=== PATIENT | male | born 1955 | race Caucasian/White ===

== ENCOUNTER 2020-01-02 12:46 | Outpatient (RCR) | payer MEDICARE, OTHER, SELFPAY ==
[2020-01-02 13:00] VITALS: BP 153/111; PULSE 87; RESP 16; BMI 33.9
--- NOTE | 2020-01-02 13:14 | WC ---
PT WILL BRING IN MED LIST @ NEXT VISIT.
[2020-01-02 13:40] VITALS: BP 144/66; PULSE 92; RESP 18
--- NOTE | 2020-01-02 15:53 | HP.PCM_ITS ---
(1) Laceration of left forearm Status: Acute Current Visit: Yes Code(s): S51.812A - Laceration without foreign body of left forearm, initial encounter (2) Hyperlipemia Status: Acute Current Visit: Yes Code(s): E78.5 - Hyperlipidemia, unspecified (3) Atrial fibrillation Status: Acute Current Visit: Yes Code(s): I48.91 - Unspecified atrial fibrillation (4) GERD (gastroesophageal reflux disease) Status: Acute Current Visit: Yes Code(s): K21.9 - Gastro-esophageal reflux disease without esophagitis (5) HTN (hypertension) Status: Chronic Current Visit: Yes Code(s): I10 - Essential (primary) hypertension (6) Delayed wound healing Status: Acute Current Visit: Yes Code(s): T14.8XXD - Other injury of unspecified body region, subsequent encounter History of Present Illness Date of Service: 01/02/20 Chief Complaint: Nonhealing wound/laceration to right arm x2 weeks History of Wound: This is a 64-year-old white male with a past medical history as listed above who presents to the wound healing center today with a complaint of a laceration to right forearm x2 weeks. This occurred after a mechanical fall where he hit the ground and cut a area on his forearm against an object as he was falling. He has been utilizing triple antibiotic ointment. He states that the wound has delayed healing and has not improved much. He denies any other treatments and he denies any systemic or localized signs of infection. All other systems reviewed and negative with exception of those listed above. Past Medical History Past Medical History: Chronic Problems HTN (hypertension) (Chronic) Allergies/Adverse Reactions: Allergies bee pollen Allergy (Verified 01/02/20 13:12) Swelling ROBERT Inhibitors Adverse Reaction (Verified 01/02/20 13:12) Angioedema Smoking Status: Former smoker Review of Systems Constitutional: Denies: Chills, Fever, Weight Change Eyes: Denies: Pain, Vision Change HEENT: Denies: Difficulty Hearing, Difficulty Swallowing, Sinus Congestion Cardiovascular: Denies: Chest Pain, Palpitations Respiratory: Denies: Cough, Shortness of Breath Gastrointestinal: Denies: Diarrhea, Nausea, Vomiting Genitourinary: Denies: Dysuria, Hematuria Skin: Reports: Wounds - See HPI Endocrine: Denies: Heat/ Cold Intolerance, Polydipsia, Polyuria Hematologic/ Lymphatic: Denies: Easy Bruising, Easy Bleeding - Physical Exam Vital Signs Pulse Resp BP 92 18 144/66 H 01/02/20 13:40 01/02/20 13:40 01/02/20 13:40 General: Alert, Oriented x3, Cooperative, No apparent distress HEENT: Atraumatic Oral: Moist Mucosa Neck: Supple, No JVD Lungs: Clear to auscultation, Normal air movement Cardiovascular: Regular rate, Regular Rhythm, Normal S1, Normal S2 Abdomen: Soft, Non Tender Extremities: No clubbing, No cyanosis, No edema Skin: Ulcer/ Wound - See nursing documentation, wound to right posterior forearm with large amount of adherent slough, no signs of obvious infection at this time Wound Measurements and Assessment WC - Nurse 1 - General Ulcer Measurement Start: 01/02/20 12:59 Freq: Status: Active Protocol: Activity Type Activity Date Activity User E-Sign Co-Sign Detail Recorded Client Recorded Date Recorded By Document 01/02/20 13:00 [facility] [id number] 01/02/20 13:08 [facility] 01/02/20 13:00 Wound Center Nurse 1 [Ulcer Assessment] #1- R ARM POST FALL -Combined with other wound No -Current Size (cm) - Length 10.2 -Current Size (cm) - Width 5.7 -Current Size (cm) - Depth 0.1 -Total Square Cm 58.14 -Date of Last Picture (Recall this 01/02/20 field) -Photo Taken Yes -Epithelialization None Present -Tunneling No -Undermining/Tunneling No -Circular Undermining No -Exudate Amt Small -Exudate Type Serous -Wound Margin Flat & Intact -Granulation Amt Small (1-33%) -Granulation Quality [place] -Slough/Fibrin Yes -Necrosis Amt Large (67-100%) -Necrotic Tissue Type Adherent Slough -Texture (Saranya-wound Skin Appearance) Assessed, Scarring -Moisture (Saranya-wound Skin Appearance Assessed,Dry/ ) Scaly -Color (Saranya-wound Skin Appearance) Assessed, Erythema -Temperature (Saranya-wound Skin No Abnormality Appearance) (Pt Warm) -Tenderness on Palpation (Saranya-wound No Skin Appearance) -Ulcer Cleansing Rinsed/ Irrigated with Saline -Foul Odor after Cleansing No -Anesthetic Used 4% Lidocaine Solution WC - Nurse 2 - General Ulcer CM Notes Start: 01/02/20 12:59 Freq: Status: Active Protocol: Activity Type Activity Date Activity User E-Sign Co-Sign Detail Recorded Client Recorded Date Recorded By Document 01/02/20 13:24 MW [id number] 01/02/20 13:31 MW 01/02/20 13:24 Wound Center Nurse 2 [Procedure/Treatment] -Time 13:24 -Correct Patient Yes -Correct Side, Site, Position Yes -Correct Procedure Yes -Procedure Performed Yes -Type of Procedure Debridement -Clinical Debridement Subcutaneous -Tissue Removed Subcutaneous -Post Debridement (cm) - Length 13.5 -Post Debridement (cm) - Width 3.5 -Post Debridement (cm) - Depth 0.1 -Total Square (Post) (cm) 47.25 -Area of Debridement (cm) - Length 13.5 -Area of Debridement (cm) - Width 3.5 -Total Square (Area) (cm) 47.25 -Tunneling No -Undermining/Tunneling No -Circular Undermining No -Wound/Ulcer Outcome Not Healed -Ulcer Cleansing Rinsed/ Irrigated with Saline -Foul Odor after Cleansing No -Bioengineered Tissue No -Bleeding Controlled with Pressure -Offloading No -Debridement - Subq, 1st 20sq cm Yes -Debridement, SubQ, ea addt'l 20sq cm 2 or part thereof [See Physician Procedure note for Specifics] Pain Scale: 0-10 Numeric [Pain] -Is Patient Pain Free? Yes WC - Nurse 3 - General Ulcer D/C NN Start: 01/02/20 12:59 Freq: Status: Active Protocol: Activity Type Activity Date Activity User E-Sign Co-Sign Detail Recorded Client Recorded Date Recorded By Document 01/02/20 13:40 RB [id number] 01/02/20 13:42 RB 01/02/20 13:40 Wound Care Nurse 3 [Wound Dressing] #1- R ARM POST FALL -Ulcer Cleansing Rinsed/ Irrigated with Saline -Primary Dressing Applied Promogran -Primary Dressing Covered/Secured Dry Gauze,Dry with Gauze & Roll Gauze,Secured with Tape -Promogran 2 [Post Procedure Tolerated] -Treatment Response Procedure Tolerated Well Vital Signs [Pulse] -Pulse Rate (60-100) 92 -Pulse Location Monitor [Respirations] -Respiratory Rate (12-18) 18 -Respiratory rate source Observation [Blood Pressure] -Blood Pressure (90/60-120/80) 144/66 H -Blood Pressure Mean (mm Hg) 92 -Source Monitor -Position Sitting -Blood Pressure Location Left Arm Pain Scale: 0-10 Numeric [Pain] -Is Patient Pain Free? Yes WC - Visit Discharge [Visit Discharge Information] -Discharge Condition Stable -Ambulatory Status Ambulatory -Transportation Private Auto -Medication Reconcilliation completed No & provided to patient/care provider -Clinical Summary of Care Provided Yes Neurological: Neuro grossly intact Psych/Mental Status: Normal Affect, Appropriate, Alert and oriented to time, place, person, mood and affect Debridement Note Post-Debridement Measurements/Treatment WC - Nurse 2 - General Ulcer CM Notes Start: 01/02/20 12:59 Freq: Status: Active Protocol: Activity Type Activity Date Activity User E-Sign Co-Sign Detail Recorded Client Recorded Date Recorded By Document 01/02/20 13:24 MW [id number] 01/02/20 13:31 MW 01/02/20 13:24 Wound Center Nurse 2 #1- R ARM POST FALL -Time 13:24 -Correct Patient Yes -Correct Side, Site, Position Yes -Correct Procedure Yes -Procedure Performed Yes -Type of Procedure Debridement -Clinical Debridement Subcutaneous -Tissue Removed Subcutaneous -Post Debridement (cm) - Length 13.5 -Post Debridement (cm) - Width 3.5 -Post Debridement (cm) - Depth 0.1 -Total Square (Post) (cm) 47.25 -Area of Debridement (cm) - Length 13.5 -Area of Debridement (cm) - Width 3.5 -Total Square (Area) (cm) 47.25 -Tunneling No -Undermining/Tunneling No -Circular Undermining No -Wound/Ulcer Outcome Not Healed -Ulcer Cleansing Rinsed/ Irrigated with Saline -Foul Odor after Cleansing No -Bioengineered Tissue No -Bleeding Controlled with Pressure -Offloading No -Debridement - Subq, 1st 20sq cm Yes -Debridement, SubQ, ea addt'l 20sq cm 2 or part thereof Pain Scale: 0-10 Numeric Is Patient Pain Free? Yes - Nurse 3 - General Ulcer D/C NN Start: 01/02/20 12:59 Freq: Status: Active Protocol: Activity Type Activity Date Activity User E-Sign Co-Sign Detail Recorded Client Recorded Date Recorded By Document 01/02/20 13:40 RB [id number] 01/02/20 13:42 RB 01/02/20 13:40 Wound Care Nurse 3 #1- R ARM POST FALL -Ulcer Cleansing Rinsed/ Irrigated with Saline -Primary Dressing Applied Promogran -Primary Dressing Covered/Secured with Dry Gauze,Dry Gauze & Roll Gauze,Secured with Tape -Promogran 2 Treatment Response Procedure Tolerated Well Vital Signs Pulse Rate (60-100) 92 Pulse Location Monitor Respiratory Rate (12-18) 18 Respiratory rate source Observation Blood Pressure (90/60-120/80) 144/66 H Blood Pressure Mean (mm Hg) 92 Source Monitor Position Sitting Blood Pressure Location Left Arm Pain Scale: 0-10 Numeric Is Patient Pain Free? Yes WC - Visit Discharge Discharge Condition Stable Ambulatory Status Ambulatory Transportation Private Auto Medication Reconcilliation completed & No provided to patient/care provider Clinical Summary of Care Provided Yes Wound debrided: Right forearm laceration Laterality: Right Type of Debridement: Excisional debridement Anesthesia Used: 5% Lidocaine Gel Depth: Down to and including healthy tissue, in the subcutaneous layer Percentage of wound debrided: 100 Instrument Used: 5mm curette Tissue Removed: Slough and devitalized tissue Severity: Fat Layer Exposed Amount of bleeding with debridement: Mild Bleeding Controlled with: Pressure Patient tolerated procedure well Assessment/Plan Active Problems Laceration of left forearm (Acute) Hyperlipemia (Acute) Atrial fibrillation (Acute) GERD (gastroesophageal reflux disease) (Acute) HTN (hypertension) (Chronic) Delayed wound healing (Acute) Assessment: Laceration right forearm Plan: The patient was seen and examined at the wound center today and was updated on the plan of care. A subcutaneous debridement was performed today. The patient tolerated the procedure well. The patients wound care will consist of:promogran moistened apply daily and cover with adaptic and gauze. Wound cultures were held. Baseline bloodwork held. Patient educated on the importance of diet on wound healing and instructed to increase protein and vitamin C intake. Patient verbalized understanding. Patient will follow up at wound healing center in one week or sooner if needed. This note was generated with [employer] dictation software. It may contain incorrect words, spelling, and pu nctuation that were not noted in checking the note before signing. Office Visits / Consults: [id number] OV L3 Est 111xxx-113xx: [id number] Jessica subq tissue 20 sq cm/< Add On Codes: [id number] Jessica subq tissue add-on
== END 2020-01-08 23:59 ==
LOC: WC 12:46
PROVIDERS: PCP Family Medicine; Referring Provider Family Medicine; Visit Provider Nurse Practitioner Family
DX: S51.811A Laceration without foreign body of right forearm, initial encounter (principal); W19.XXXA Unspecified fall, initial encounter; E78.5 Hyperlipidemia, unspecified; I48.91 Unspecified atrial fibrillation; K21.9 Gastro-esophageal reflux disease without esophagitis; I10 Essential (primary) hypertension; Z87.891 Personal history of nicotine dependence
CPT/HCPCS: 11042; 11045; 99203; G0463

== ENCOUNTER 2020-01-09 08:04 | Outpatient (RCR) | payer MEDICARE, OTHER, SELFPAY ==
[2020-01-09 00:51] VITALS: BP 144/66; PULSE 92; RESP 18
[2020-01-09 13:08] VITALS: BP 151/103; PULSE 80; RESP 18; TEMP 36.1; BMI 33.9
--- NOTE | 2020-01-09 16:36 | PCM.WC.PN ---
(1) Laceration of right forearm Status: Acute Code(s): S51.811A - Laceration without foreign body of right forearm, initial encounter (2) Delayed wound healing Status: Acute Code(s): T14.8XXD - Other injury of unspecified body region, subsequent encounter (3) GERD (gastroesophageal reflux disease) Status: Acute Code(s): K21.9 - Gastro-esophageal reflux disease without esophagitis (4) HTN (hypertension) Status: Chronic Code(s): I10 - Essential (primary) hypertension Type of Wound Date of Service: 01/09/20 Chief Complaint: Nonhealing wound/laceration to right arm x2 weeks History of Wound: This is a 64-year-old white male with a past medical history as listed above who presents to the wound healing center today with a complaint of a laceration to right forearm x2 weeks. This occurred after a mechanical fall where he hit the ground and cut a area on his forearm against an object as he was falling. He has been utilizing triple antibiotic ointment. He states that the wound has delayed healing and has not improved much. He denies any other treatments and he denies any systemic or localized signs of infection. All other systems reviewed and negative with exception of those listed above. Progress of Wound: 01/09/2020?site is healed without any signs of infection at this time. The patient otherwise denies any fever, chills, nausea, vomiting, shortness of breath, chest pain or pressure, palpitations, orthopnea, lower extremity edema, syncope or presyncopal episodes. - Physical Exam Vital Signs Temp Pulse Resp BP 97 F L 80 18 151/103 H 01/09/20 13:08 01/09/20 13:08 01/09/20 13:08 01/09/20 13:08 General: Alert, Oriented x3, Cooperative, No apparent distress HEENT: Atraumatic Oral: Moist Mucosa Lungs: Clear to auscultation, Normal air movement Cardiovascular: Regular rate, Regular Rhythm Abdomen: Soft, Non Tender Extremities: No clubbing, No cyanosis, No edema Skin: Ulcer/ Wound - Healed, no signs of infection at this time Wound Measurements and Assessment WC - Nurse 1 - General Ulcer Measurement Start: 01/09/20 13:08 Freq: Status: Discharge Protocol: Activity Type Activity Date Activity User E-Sign Co-Sign Detail Recorded Client Recorded Date Recorded By Document 01/09/20 13:08 [facility] [id number] 01/09/20 13:12 [facility] Edit Status 01/09/20 13:34 BKKillian DAEMON Active=>Discharge [id number] 01/09/20 13:34 BKG DAEMON 01/09/20 13:08 Wound Center Nurse 1 [Ulcer Assessment] #1- R ARM POST FALL -Combined with other wound No -Current Size (cm) - Length 0.1 -Current Size (cm) - Width 0.1 -Current Size (cm) - Depth 0.1 -Total Square Cm 0.01 -Photo Taken No -Epithelialization Large 67-100% -Tunneling No -Undermining/Tunneling No -Circular Undermining No -Texture (Saranya-wound Skin Appearance) Assessed -Moisture (Saranya-wound Skin Appearance Assessed ) -Color (Saranya-wound Skin Appearance) Assessed -Temperature (Saranya-wound Skin No Abnormality Appearance) (Pt Warm) -Tenderness on Palpation (Saranya-wound No Skin Appearance) WC - Nurse 2 - General Ulcer CM Notes Start: 01/09/20 13:08 Freq: Status: Discharge Protocol: Activity Type Activity Date Activity User E-Sign Co-Sign Detail Recorded Client Recorded Date Recorded By Edit Status 01/09/20 13:34 BKKillian DAEMON Active=>Discharge [id number] 01/09/20 13:34 BKG DAEMON - Nurse 3 - General Ulcer D/C NN Start: 01/09/20 13:08 Freq: Status: Discharge Protocol: Activity Type Activity Date Activity User E-Sign Co-Sign Detail Recorded Client Recorded Date Recorded By Document 01/09/20 13:22 [facility] [id number] 01/09/20 13:22 [facility] Edit Status 01/09/20 13:34 BKG DAEMON Active=>Discharge [id number] 01/09/20 13:34 BKG DAEMON 01/09/20 13:22 Wound Care Nurse 3 [Wound Dressing] -Primary Dressing Applied NonAdherent Contact Layer -Primary Dressing Covered/Secured Dry Gauze,Other with -Other Covering coban [Post Procedure Tolerated] -Treatment Response Procedure Tolerated Well Vital Signs [Comments] -Comment no debridement. no post vitals Pain Scale: 0-10 Numeric [Pain] -Is Patient Pain Free? Yes WC - Visit Discharge [Visit Discharge Information] -Discharge Condition Stable -Ambulatory Status Ambulatory -Transportation Private Auto Neurological: Neuro grossly intact Psych/Mental Status: Normal Affect, Appropriate, Alert and oriented to time, place, person, mood and affect Debridement Note Post-Debridement Measurements/Treatment - Nurse 3 - General Ulcer D/C NN Start: 01/09/20 13:08 Freq: Status: Discharge Protocol: Activity Type Activity Date Activity User E-Sign Co-Sign Detail Recorded Client Recorded Date Recorded By Document 01/09/20 13:22 [facility] [id number] 01/09/20 13:22 [facility] 01/09/20 13:22 Wound Care Nurse 3 #1- R ARM POST FALL -Primary Dressing Applied NonAdherent Contact Layer -Primary Dressing Covered/Secured with Dry Gauze,Other -Other Covering coban Treatment Response Procedure Tolerated Well Vital Signs Comment no debridement. no post vitals Pain Scale: 0-10 Numeric Is Patient Pain Free? Yes WC - Visit Discharge Discharge Condition Stable Ambulatory Status Ambulatory Transportation Private Auto Assessment/Plan Assessment: Laceration right forearm Plan: The patient was seen and examined at the wound center today and was updated on the plan of care. The patient's wound is healed without any signs of infection at this time. Cover with Adaptic and gauze for a week for protection. Patient educated on the importance of diet on wound healing and instructed to increase protein and vitamin C intake. Patient verbalized understanding. Patient will follow up at wound healing center in one week or sooner if needed. This note was generated with [employer] (now [employer]) dictation software. It may contain incorrect words, spelling, and punctuation that were not noted in checking the note before signing. Office Visits / Consults: [id number] [facility] Est
== END 2020-01-09 13:34 | disposition home or self-care (01) ==
LOC: WC 08:04
PROVIDERS: PCP Family Medicine; Referring Provider Family Medicine; Visit Provider Nurse Practitioner Family
DX: S51.811A Laceration without foreign body of right forearm, initial encounter (principal); T14.8XXD Other injury of unspecified body region, subsequent encounter; K21.9 Gastro-esophageal reflux disease without esophagitis; I10 Essential (primary) hypertension; W18.09XA Striking against other object with subsequent fall, initial encounter; Y93.9 Activity, unspecified; Y92.89 Other specified places as the place of occurrence of the external cause; Y99.9 Unspecified external cause status
CPT/HCPCS: 99213; G0463